=== PATIENT | female | born 1945 | race Two or more races ===

== ENCOUNTER 2019-06-21 06:00 | Day surgery (SDC) | payer OTHER ==
[~2019-06-21 06:00] MED LIST: ATORVASTATIN CA10 MG PO; IRBESARTAN-HCT1 EACH PO; TRIGLIDE160 MG PO
== END 2019-06-21 12:43 | disposition home or self-care (01) ==
LOC: CIR.AMB 06:00
DX: D12.9 Benign neoplasm of anus and anal canal (principal)

== ENCOUNTER 2025-05-14 08:55 | Outpatient (CLI) | payer OTHER | END 2025-05-14 09:00 | disposition home or self-care (01) | LOC: MAMO-SONO 08:55 | PROVIDERS: ATTEND Internal Medicine | DX: Z12.31 Encounter for screening mammogram for malignant neoplasm of breast (principal); Z13.820 Encounter for screening for osteoporosis ==

== ENCOUNTER 2025-05-14 11:03 | Outpatient (CLI) | payer OTHER | END 2025-05-14 11:07 | disposition home or self-care (01) | LOC: NUCLEAR 11:03 | PROVIDERS: ATTEND Internal Medicine | DX: Z13.820 Encounter for screening for osteoporosis (principal); M81.0 Age-related osteoporosis without current pathological fracture ==